=== PATIENT | female | born 1985 | race Caucasian/White ===

== ENCOUNTER → 2016-11-05 | Outpatient (CLI) | payer MEDICAID | LOC: FIMAGING 09:22 | PROVIDERS: ATTEND Nurse Practitioner Women's Health | DX: Z12.39 Encounter for other screening for malignant neoplasm of breast (principal); N63 Unspecified lump in breast; Z86.018 Personal history of other benign neoplasm ==

== ENCOUNTER → 2017-01-05 | Outpatient (CLI) | payer MEDICAID | LOC: FIMAGING 09:15 | PROVIDERS: ATTEND Family Medicine | DX: R74.8 Abnormal levels of other serum enzymes (principal) ==

== ENCOUNTER 2017-12-14 14:03 | Emergency (ER) | payer MEDICAID ==
--- NOTE | 2017-12-14 14:33 | EDPHY ---
H & P Time Seen by Provider: 12/14/17 14:30 HPI/ROS: Chief complaint. Abdominal pain HPI. Patient is a 32-year-old female presents emergency department with abdominal pain that began at 10:00 a.m. This morning. She has a history of dysmenorrhea. She just began her menstrual period. She describes low abdominal cramping that radiates to her back. It is associated with vomiting and diarrhea. No urinary symptoms. No fever. She has had similar symptoms previously. She also notes some shortness of breath that began with the vomiting. She does not have her inhaler with her ROS Constitutional. no fever/chills, no weakness Eyes. no problems with vision ENT. no sore throat, no nasal drainage Cardiovascular. no chest pain Respiratory. no shortness of breath, no cough Abdominal. Abdominal pain and vaginal bleeding with vomiting and diarrhea . no problems urinating MS. no calf pain/swelling, no neck/back pain, no joint pain Skin. no rash Lymph. no swollen glands Neuro. no headache, no dizziness, no difficulty walking or with speech Past Medical/Surgical History: Past medical history significant ovarian cyst and asthma Social History: , nonsmoker, no alcohol Smoking Status: Never smoked Physical Exam: General Appearance: Alert pleasant well-developed female mild distress vitals are stable Eyes: Pupils equal and round no pallor or injection. ENT, Mouth: Mucous membranes are moist. Respiratory: No retractions. Mild inspiratory expiratory wheezing Cardiovascular: Regular rate and rhythm. Gastrointestinal: Abdomen is soft with suprapubic tenderness. No masses. Normal bowel sounds Neurological: Awake and alert, sensory and motor exams grossly normal. Skin: Warm and dry, no rashes. Musculoskeletal: Neck is supple nontender. Extremities symmetrical, full range of motion. Psychiatric: Patient is oriented X 3, there is no agitation. Constitutional: Initial Vital Signs Temperature (C) 36.6 C 12/14/17 14:08 Heart Rate 73 12/14/17 14:08 Respiratory Rate 18 12/14/17 14:08 Blood Pressure 127/82 H 12/14/17 14:08 O2 Sat (%) 97 12/14/17 14:08 O2 Delivery Mode Room Air Allergies/Adverse Reactions: Penicillins Allergy (Verified 12/14/17 14:07) Home Medications: Medication Instructions Recorded Promethazine HCl [Phenergan] 25 mg PO Q6 #10 tab 10/23/14 oxyCODONE/APAP 5/325 [Percocet 1 tab PO Q6 #10 tab 10/23/14 5/325] Cephalexin [Keflex (*)] 500 mg PO TID #15 cap 12/14/17 Medical Decision Making - Diagnostics Imaging Results: Imaging Impressions Pelvic/Renal Ultrasound 12/14/17 14:54 Impression: 1. Right ovarian simple cyst measuring 2.9 x 2.5 x 2.4 cm. 2. No ovarian torsion or significant free fluid. 3. No uterine leiomyomata. Findings and recommendations discussed with Emergency Department physician, Wil Corbett at 1558 hour, 12/14/2017. Final report concurs with initial preliminary interpretation. Ultrasound of the pelvis reveals a 2.5 cm ovarian cyst. No evidence for torsion ED Course/Re-evaluation: Re-evaluation at about 3:40 p.m. Patient is stable and feeling better. No abdominal pain now. Re-evaluation 4:10 p.m.. Patient and her and I discussed imaging and lab results. We discussed treatment plan including criteria for return importance of follow-up and further evaluation. They expressed understanding and agreement Differential Diagnosis: I considered urinary tract infection, ectopic , ovarian cyst, dysmenorrhea - Data Points Laboratory Results: Laboratory Results 12/14/17 14:30 12/14/17 14:30 12/14/17 12/14/17 12/14/17 15:20 14:30 14:30 WBC RBC Hgb Hct MCV MCH MCHC RDW Plt Count MPV Neut % (Auto) Lymph % (Auto) [place] % (Auto) Eos % (Auto) Baso % (Auto) Nucleat RBC Rel Count Absolute Neuts (auto) Absolute Lymphs (auto) Absolute Monos (auto) Absolute Eos (auto) Absolute Basos (auto) Absolute Nucleated RBC Immature Gran % Immature Gran # Sodium 142 mEq/L mEq/L (135-145) Potassium 4.0 mEq/L mEq/L (3.5-5.2) Chloride 105 mEq/L mEq/L (97-110) Carbon Dioxide 23 mEq/l mEq/l (22-31) Anion Gap 14 mEq/L mEq/L (8-16) BUN 11 mg/dL mg/dL (7-23) Creatinine 0.7 mg/dL mg/dL (0.6-1.0) Estimated GFR > 60 Glucose 101 mg/dL H mg/dL (70-100) Calcium 9.6 mg/dL mg/dL (8.5-10.4) Beta HCG, Qual NEGATIVE Urine Color YELLOW Urine Appearance HAZY Urine pH 9.0 H (5.0-7.5) Ur Specific Turner 1.010 (1.002-1.030) Urine Protein 2+ H (NEGATIVE) Urine Ketones 1+ H (NEGATIVE) Urine Blood 3+ H (NEGATIVE) Urine Nitrate NEGATIVE (NEGATIVE) Urine Bilirubin NEGATIVE (NEGATIVE) Urine Urobilinogen NEGATIVE EU EU (0.2-1.0) Ur Leukocyte Esterase TRACE H (NEGATIVE) Urine RBC 50-182 /hpf H /hpf (0-3) Urine WBC 25-50 /hpf H /hpf (0-3) Ur Epithelial Cells 1+ /lpf /lpf (NONE-1+) Urine Bacteria 1+ /hpf H /hpf (NONE SEEN) Urine Glucose NEGATIVE (NEGATIVE) 12/14/17 14:30 WBC 10.78 10^3/uL H 10^3/uL (3.80-9.50) RBC 4.64 10^6/uL 10^6/uL (4.18-5.33) Hgb 14.2 g/dL g/dL (12.6-16.3) Hct 41.6 % % (38.0-47.0) MCV 89.7 fL fL (81.5-99.8) MCH 30.6 pg pg (27.9-34.1) MCHC 34.1 g/dL g/dL (32.4-36.7) RDW 12.6 % % (11.5-15.2) Plt Count 208 10^3/uL 10^3/uL (150-400) MPV 11.4 fL fL (8.7-11.7) Neut % (Auto) 88.8 % H % (39.3-74.2) Lymph % (Auto) 7.1 % L % (15.0-45.0) Sumter % (Auto) 2.9 % L % (4.5-13.0) Eos % (Auto) 0.4 % L % (0.6-7.6) Baso % (Auto) 0.4 % % (0.3-1.7) Nucleat RBC Rel Count 0.0 % % (0.0-0.2) Absolute Neuts (auto) 9.58 10^3/uL H 10^3/uL (1.70-6.50) Absolute Lymphs (auto) 0.77 10^3/uL L 10^3/uL (1.00-3.00) Absolute Monos (auto) 0.31 10^3/uL 10^3/uL (0.30-0.80) Absolute Eos (auto) 0.04 10^3/uL 10^3/uL (0.03-0.40) Absolute Basos (auto) 0.04 10^3/uL 10^3/uL (0.02-0.10) Absolute Nucleated RBC 0.00 10^3/uL 10^3/uL (0-0.01) Immature Gran % 0.4 % % (0.0-1.1) Immature Gran # 0.04 10^3/uL 10^3/uL (0.00-0.10) Sodium Potassium Chloride Carbon Dioxide Anion Gap BUN Creatinine Estimated GFR Glucose Calcium Beta HCG, Qual Urine Color Urine Appearance Urine pH Ur Specific Turner Urine Protein Urine Ketones Urine Blood Urine Nitrate Urine Bilirubin Urine Urobilinogen Ur Leukocyte Esterase Urine RBC Urine WBC Ur Epithelial Cells Urine Bacteria Urine Glucose Medications Given: Discontinued Medications Albuterol/Ipratropium (Duoneb) 3 ml IH EDNOW ONE Stop: 12/14/17 14:55 Last Admin: 12/14/17 15:02 Dose: 3 ml Sodium Chloride (Ns) 1,000 mls @ 0 mls/hr IV EDNOW ONE; Wide Open PRN Reason: Protocol Stop: 12/14/17 14:55 Last Admin: 12/14/17 15:02 Dose: 1,000 mls Sodium Chloride (Ns) 1,000 mls @ 0 mls/hr IV EDNOW ONE; Wide Open PRN Reason: Protocol Stop: 12/14/17 14:55 Last Admin: 12/14/17 15:02 Dose: 1,000 mls Ketorolac Tromethamine (Toradol) 30 mg IVP EDNOW ONE Stop: 12/14/17 14:55 Last Admin: 12/14/17 15:02 Dose: 30 mg Ondansetron HCl (Zofran) 4 mg IVP EDNOW ONE Stop: 12/14/17 14:55 Last Admin: 12/14/17 15:03 Dose: 4 mg Departure - Departure Disposition: Home, Routine, Self-Care Clinical Impression: Ovarian cyst Qualifiers: Laterality: right Qualified Code(s): N83.201 - Unspecified ovarian cyst, right side Urinary tract infection Qualifiers: Urinary tract infection type: site unspecified Hematuria presence: with hematuria Qualified Code(s): N39.0 - Urinary tract infection, site not specified ; R31.9 - Hematuria, unspecified; R31.9 - Hematuria, unspecified Condition: Good Instructions: Ovarian Cyst (ED), Urinary Tract Infection in Women (ED) Additional Instructions: Drink plenty of fluids and stay hydrated. Ibuprofen 600 mg every 6 hr for discomfort. Cephalexin as antibiotic. Return for worsening symptoms. Recheck in 2 days if not improved Referrals: Martha Hull, PAC [Primary Care Provider] - 2-3 days, if not improved Prescriptions: Cephalexin [Keflex (*)] 500 mg PO TID #15 cap
[2017-12-14] MEDS ORDERED: KETOROLAC 30 MG/1 ML SDV IVP ONE (14:54)
[2017-12-14] MEDS ORDERED: IPRATROPIUM/ALBUTEROL 3 ML DEYVIAL IH ONE (14:54)
[2017-12-14] MEDS ORDERED: ONDANSETRON 4 MG/2 ML VIAL IVP ONE (14:54)
[2017-12-14] MEDS ORDERED: NS 1,000 ML IV ONE ×2 (14:54)
[2017-12-14 15:04] LABS: PLATELET COUNT 208 10^3/uL (150-400)
[2017-12-14 16:34] VITALS: BP 96/68
== END 2017-12-14 16:40 | disposition home or self-care (01) ==
DX: N83.201 Unspecified ovarian cyst, right side (principal); N39.0 Urinary tract infection, site not specified; B96.89 Other specified bacterial agents as the cause of diseases classified elsewhere; E86.9 Volume depletion, unspecified
CPT/HCPCS: 96374; J1885; J2405

== ENCOUNTER 2018-05-30 09:31 | Day surgery (SDC) | payer MEDICAID ==
--- NOTE | 2018-05-30 00:32 | PDGENHP ---
History and Physical - Chief Complaint LEFT HIP PAIN - History of Present Illness Diagnosis: 1. Bilateral Femoroacetabular impingement (CAROL) Cam type 2. Bilateral Hip Dyplasia 3. Bilateral femoral/tibial malrotation (Left side symptomatic >>> Right) HISTORY OF PRESENT ILLNESS: Raúlis a 33 y.o.~~~active female~who I have had the pleasure to consult on today. I have enjoyed meeting her. She~lives in [place], [place]. 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 ~She~is ; she~has no children. ~Raúlenjoys unicycling, juggling, hiking, rock climbing. Wiliams bilateral hip pain started several years ago, with some~recalled trauma or injury, and with some~previous complaints. Back in 2009- doing some hard stretching and felt a sensation of it slipping out of place - but this was nonpainful. Then 2 years ago started having lower back pain followed by hip pain in the past 6 months. Hips started bothering her when she began PT for her lower back. Raúldoes not have~a known history of hip dysplasia (h/o dysplasia in sister and father). Presentation today is of anterior bilateral hip pain (left >>~right). ~The hip does~wake her~at night and does~click and catch on her. Sitting can be a real struggle for her. Raúldoes~report suffering from lower back pain episodes. Raúlhas not~participated in physical therapy (for the hip specifically) and has not~tried other conservative measures. Raúlhas not~utilized medication for pain management. Raúlunderstands that she~has a hip and pelvis problem which should be researched and wishes to get a better understanding of her~hip status, followed by an establishment of a treatment strategy, hoping she~would be able to get back to her~well being active life. History: Past medical history: ~ Patient ~has a past medical history of Asthma. Relevant familial history: hip dysplasia sister and father Past surgical history: None Raúlhas never received general anesthesia. I have reviewed, verified and agree with the past medical, surgical, family and social history. Current Medications:~has a current medication list which includes the following prescription(s): ibuprofen. ALLERGIES:~is allergic to penicillins. Objective: Physical Examination: Raúlis 5 feet 9 inches tall and weighs 140 Lbs. Raúlis AAO x3; she~is well-nourished, in NAD. Skin is warm and dry. ~Breathing is non-labored. ~CV with RRR by pulse. Abdomen is soft, NTND. Currently, she~walks with a normal~gait. Trendelenburg sign is positive and proprioception is reduced, both~sides. She~presents with no~signs of joint laxity. Beightons Score: 0 She~is fit looking. ~~ Lower spine examination is negative for sciatic or femoral nerve irritation with negative SLR &~femoral stretch tests. Range of motion of the spine is normal~for flexion, extension, and rotations, with no associated pain. Strength, Sensation and pulses are normal - bilaterally Ankles and knees exams are normal~and no~mal-alignment is evident. She~has right~0.5 cm short leg length discrepancy. Thigh circumference is symmetric with no evidence for muscle atrophy on both~ sides. Hip ROM (degrees): FL ER At 90~hip FL IR At 90~hip FL AB AD EX IR Neutral hip ER Neutral hip R 110 55 20 35 10 5 45 40 L 120 50 35 35 10 5 45 40 Specific hip and pelvis tests: Impingement Test [place] Roll Add. Longus R Negative +++ Negative Negative L +++ +++ Negative + Glut. Med ITB Posterior Imp R Negative 5/5 strength Negative 5/5 strength Negative L Negative 5/5 strength Negative 5/5 strength Negative Squeeze test measured normal Bony Symphysis pubis is painful to touch while concentric activity of the rectus abdominis, does not~produce pain at its insertion. Ilio Psos specific tests are negative for pain during cycling for both hips~and remarkable for non painful snap~~On eleft HF has no pain both hips. lateral capsule tenderness on the left Greater trochanteric burse is painful on the left hip. Piriformis tests: FAIR is negative, with no local signs of neuritis related to sciatic nerve. SIJs examination is painful bilaterally with normal~[place] in relation and local tenderness. Hamstrings tests are negative both hips. Tibial torsion - 55 bilaterally ER On a daily basis, the following percentages reflect Liane's overall total pain : Deep anterior hip: 50% SI joint: 50% Imaging: Radiology studies which I have personally reviewed, analyzed and measured are below: XR: AP of the hip and pelvis: Performed in a suboptimal technique Coccyx to pubic symphysis distance 2.2 cm. 0 degrees caudal [place] Lines are preserved. Marked Pathological signs are seen in the Symphysis Pubis. No Pathological signs are seen at the Ischial tuberosity. ~ Specific measurements show: NSA~ LCE Sourcil~Angle Sharp's angle Lat. Cam Lat. Pincer C.Over~sign Head~Coverage % ATDmm R 128 16 9 41 N N N 65 + L 125 19 11 40 N N N 73 + Pos. wall sign ISS NAD ~~Dysplasia Comments R + Negative 18.6 mm +++ L + Negative 14.4 mm ++ Sclerosis Sup. Lat. OA Cysts Joint Space-WBZ Joint Space-Medial R Negative Negative Negative 4.6 mm 4.5 mm L Negative Negative Negative 4.5 mm 5.1 mm X Table lateral: Anterior cam lesion is seen~on both hips. Alpha Angle: ~ Right 74 dergrees Left 76 degrees Impression and plan: Raúlis a 33 y.o.~active female~suffering from symptomatic Left hip pain due to Left Hip Dyplasia, Left Femoroacetabular impingement (CAROL) Cam type, and Left (clinical) femoral and tibial malrotation causing significant disability to her~and altering her~sport and life activities. Physical examination, imaging, and her~story correspond with the diagnosis mentioned above. I explained that hip dysplasia is a condition wherein the hip joint has excessive play~and instability due to a variety of factors, including the depth and adequacy of the socket, the orientation of the femur bone, and ligament laxity around the hip joint. Dysplasia ranges in severity from borderline to yeni, with treatment options being specific to the specific nature of the problem. Left untreated, the instability in the hip joint can cause progressive tearing of the labrum and deterioration of the surface cartilage, ultimately resulting in progressive osteoarthritis of the hip. I explained that femoroacetabular impingement (CAROL - Cam type) arises due to a bony or soft tissue conflict between the femur (ball) and acetabulum (socket) caused by an abnormality in the shape of the femoral head and neck. Over time, repetitive impingement can result in damage to the labrum and adjacent surface cartilage within the socket, ultimately giving rise to progressive osteoarthritis of the hip. I explained that although a labral tear can be a source of pain, it is rarely the root of the problem and typically occurs secondary to an underlying abnormality in the shape and mechanics of the hip joint. I reviewed conservative treatment options for Dysplasia and CAROL including activity modification to avoid positions of impingement or instability, physical therapy, non-steroidal anti-inflammatory medications, and various injections (corticosteroid and PRP) aimed at reducing inflammation in the hip joint or/and preventing dynamic instability and impingement. PRP injections may promote healing and reduce symptoms in certain cases but it will not repair chronically damaged tissue. Although these measures may help to buy time~and reduce current level of symptoms, they are not a definitive solution to the problem given the underlying abnormality in the shape of the hip joint. Patients who have failed conservative management and continue to experience symptoms are candidates for definitive surgical treatment, which may consist of hip arthroscopy alone or in combination with more invasive bony realignment procedures of the hip socket and/or femur called periacetabular osteotomy (MARSHA) or derotational femoral osteotomy (DFO). Hip arthroscopy typically includes treating the labrum with either repair or reconstruction of the torn labrum; as well as addressing the underlying abnormalities by restoring the normal shape to the hip joint. If the cartilage is damaged a Microfracture surgical procedure may also be necessary to help stimulate the growth of fibrocartilage. If a patient requires a labral reconstruction or a Microfracture, the initial rehabilitation from the surgery may take longer, but the fpc results are typically favorable. Raúlwill review the info presented. In order to obtain more detailed information regarding the alignment, orientation, and shape of the bony hip and pelvis I will order a CT scan to be performed. The results of the CT scan, including femoral torsion and acetabular version measured values and 3D images, will aid me in deciding on the best treatment strategy and surgical pre-planning. (Given clinical signs of excessive external tibial torsion will get CT that includes proximal and distal tibia). Liane is going to think about her options and get back to us. Raúlis happy with this plan. I have also supplied her~with handouts, outlining the expected surgical treatment and rehab involved. I wish~Liane~all the best, ~~ Sherie Guthrie MD History Information - Allergies/Home Medication List Allergies/Adverse Reactions: Penicillins Allergy (Verified 05/02/18 11:41) RASH,HIVES HANDS & ARMS Home Medications: Ibuprofen [Motrin (*)] 400 mg PO Q8 PRN 05/06/18 [Last Taken Unknown] Imiquimod 1 each TP MOWEFR@21 05/06/18 [Last Taken Unknown] Levalbuterol Inhaler [Xopenex Hfa Inhaler (*)] 2 puffs IH DAILY PRN 05/06/18 [ Last Taken Unknown] Ondansetron Odt [Zofran Odt 4 mg (*)] 4 mg PO Q4 PRN 05/06/18 [Last Taken Unknown] I have personally reviewed and updated: medical history - Social History Smoking Status: Never smoked Review of Systems Review of Systems: Physical Exam Physical Exam:
[2018-05-30] MEDS ORDERED: ACETAMINOPHEN 500 MG TAB PO ONE (10:12)
[2018-05-30] MEDS ORDERED: CLINDAMYCIN 900 MG/DEXTROSE 50 ML IV ONE (10:12)
[2018-05-30] MEDS ORDERED: PREGABALIN 150 MG CAP PO ONE (10:12)
[2018-05-30] MEDS ORDERED: LR 1,000 ML IV ONE (10:13)
[2018-05-30] MEDS ORDERED: LIDOCAINE 1% 2 ML INJ ID PRN (10:13)
[2018-05-30] MEDS ORDERED: MIDAZOLAM 2 MG/2 ML VIAL IVP ONE (10:15)
--- NOTE | 2018-05-30 10:15 | PDANEPAE ---
ANE History of Present Illness here for hip scope ANE Past Medical History - Cardiovascular History Hx Hypertension: No Hx Arrhythmias: No Hx Chest Pain: No Hx Coronary Artery / Peripheral Vascular Disease: No Hx CHF / Valvular Disease: No Hx Palpitations: No Cardiovascular History Comment: POSS SL MURMUR TEEN - Pulmonary History Hx COPD: No Hx Asthma/Reactive Airway Disease: No Hx Recent Upper Respiratory Infection: No Hx Oxygen in Use at Home: No Hx Sleep Apnea: No Sleep Apnea Screening Result - Last Documented: Negative Pulmonary History Comment: VOCAL CORD DISORDER,SOMETIMES AFTER BIG MEAL. 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 INFREQUENT USE OF INHALER - Neurologic History Hx Cerebrovascular Accident: No Hx Seizures: No Hx Dementia: No - Endocrine History Hx Diabetes: No - Renal History Hx Renal Disorders: Yes Renal History Comment: HX OF UTI'S - Liver History Hx Hepatic Disorders: No - Neurological & Psychiatric Hx Hx Neurological and Psychiatric Disorders: No - Cancer History Hx Cancer: No - Congenital Disorder History Hx Congenital Disorders: Yes Congenital History Comment: CLAY HIPS - GI History Hx Gastrointestinal Disorders: Yes Gastrointestinal History Comment: PRONE TO NAUSEA AT THE SLIGHTEST PROVACATION CAN HAPPEN DURING MENSES - Other Health History Other Health History: INTERMITTENT RASH - Chronic Pain History Chronic Pain: Yes (CLAY HIPS) - Surgical History Prior Surgeries: LT HIP SCOPE FEMOROPLASTY 05/30/18 ANE Review of Systems Review of Systems: - Exercise capacity METS (RN): 6 METS ANE Patient History - Allergies Allergies/Adverse Reactions: Penicillins Allergy (Verified 05/02/18 11:41) RASH,HIVES HANDS & ARMS - Home Medications Home medications: home medication list seen and reviewed Home Medications: Ibuprofen [Motrin (*)] 400 mg PO Q8 PRN 05/06/18 [Last Taken Unknown] Imiquimod 1 each TP MOWEFR@21 05/06/18 [Last Taken Unknown] Levalbuterol Inhaler [Xopenex Hfa Inhaler (*)] 2 puffs IH DAILY PRN 05/06/18 [ Last Taken Unknown] Ondansetron Odt [Zofran Odt 4 mg (*)] 4 mg PO Q4 PRN 05/06/18 [Last Taken Unknown] - NPO status NPO Status: no food or drink >8 hours - Anes Hx Anes Hx: no prior problems - Smoking Hx Smoking Status: Never smoked - Alcohol Use Alcohol Use: Rarely - Family Anes Hx Family Anes Hx: none Family Hx Anesthesia Complications: NEG ANE Labs/Vital Signs - Vital Signs Vital Signs: reviewed preoperatively; see RN documention for details Height: 177.8 cm Weight: 63.503 kg ANE Physical Exam - Airway Neck exam: FROM Mallampati Score: Class 2 Mouth exam: normal dental/mouth exam - Pulmonary Pulmonary: no respiratory distress, clear to auscultation - Cardiovascular Cardiovascular: regular rate and rhythym, no murmur, rub, or gallop - ASA Status ASA Status: II ANE Anesthesia Plan Anesthesia Plan: general endotracheal anesthesia
[2018-05-30] MEDS ORDERED: BUPIVACAINE/EPI 0.5% 30 ML SDV ONE (10:26)
[2018-05-30] MEDS ORDERED: EPINEPHrine 30 MG/30 ML MDV (0.1 MG/0.1 ML) ONE (10:27)
[2018-05-30] MEDS ORDERED: fentaNYL 100 MCG/2 ML INJ ONE ×3 (10:31→12:52)
[2018-05-30] MEDS ORDERED: PROPOFOL 200 MG/20 ML VIAL ONE ×3 (10:31→12:50)
[2018-05-30] MEDS ORDERED: LIDOCAINE 2% 100 MG/5 ML SYR ONE (10:33)
[2018-05-30] MEDS ORDERED: ROCURONIUM 100 MG/10 ML VIAL ONE (10:33)
[2018-05-30] MEDS ORDERED: ONDANSETRON 4 MG/2 ML VIAL ONE (11:41)
[2018-05-30] MEDS ORDERED: DEXAMETHASONE 4 MG/ML VIAL ONE (11:41)
[2018-05-30] MEDS ORDERED: HYDROmorphONE/DILAUDID 2 MG/ML INJ IVP PRN (15:14)
[2018-05-30] MEDS ORDERED: ONDANSETRON 4 MG/2 ML VIAL IVP PRN (15:14)
[2018-05-30] MEDS ORDERED: HYDROCODONE/APAP 5/325 TAB PO PRN (15:14)
[2018-05-30] MEDS ORDERED: PROMETHAZINE HCL 25 MG/ML INJ IVP PRN (15:14)
[2018-05-30] MEDS ORDERED: NALOXONE HCL 0.4 MG/ML INJ IVP PRN (15:14)
[2018-05-30] MEDS ORDERED: oxyCODONE IR 5 MG TAB PO PRN (15:14)
[2018-05-30] MEDS ORDERED: DIAZEPAM 5 MG/ML 1 ML SYR IVP PRN (15:14)
[2018-05-30] MEDS ORDERED: fentaNYL 100 MCG/2 ML INJ IVP PRN (15:14)
[2018-05-30] MEDS ORDERED: ACETAMINOPHEN 500 MG TAB PO PRN (15:14)
--- NOTE | 2018-05-30 15:16 | POSTANESTH ---
Post Anesthetic Evaluation Cardiovascular Status: Normal, Stable, Similar to Pre-Op Cond Respiratory Status: Normal, Stable, Similar to Pre-op Cond. Level of Consciousness/Mental Status: Can Participate in Eval, Alert and Oriented Pain Control: Adequate, Prn Tx Ordered Nausea/Vomiting Control: Adequate, Prn Tx Ordered Complications Possibly Related to Anesthesia: None Noted
--- NOTE | 2018-05-30 15:31 | POSTOPPROG ---
Post Op Note Date of Operation: 05/30/18 Surgeon: Sam Jeffers Timber Management Technician: Dr. Tenorio Anesthesia: GET(General Endotracheal) Pre-op Diagnosis: Left CAROL Post-op Diagnosis: Same Procedure: Left Hip Arthroscopy Inf/Abcess present in the surg proc area at time of surgery?: No
[2018-05-30 17:30] VITALS: BP 109/70
[2018-05-30] MEDS ORDERED: oxyCODONE IR 5 MG TAB ONE (17:39)
== END 2018-05-30 18:08 | disposition home or self-care (01) ==
LOC: FSGY 09:31
PROVIDERS: ATTEND Orthopaedic Surgery Sports Medicine
PROC: 0SQB4ZZ Repair Left Hip Joint, Percutaneous Endoscopic Approach (ICD-10-PCS; principal; 2018-05-30 11:00)
PROC: BQ111ZZ Fluoroscopy of Left Hip using Low Osmolar Contrast (ICD-10-PCS; principal; 2018-05-30 11:00)
PROC: 0SBB4ZZ Excision of Left Hip Joint, Percutaneous Endoscopic Approach (ICD-10-PCS; principal; 2018-05-30 11:00)
DX: M25.852 Other specified joint disorders, left hip (principal); Q65.89 Other specified congenital deformities of hip; Z87.440 Personal history of urinary (tract) infections; Z88.0 Allergy status to penicillin
CPT/HCPCS: C1713; J0171; J1100; J2001; J2250; J2405; J2704; J3010

== ENCOUNTER 2018-06-06 05:08 | Inpatient (IN) | payer MEDICAID ==
--- NOTE | 2018-06-05 20:10 | PDGENHP ---
History and Physical - Chief Complaint LEFT HIP PAIN - History of Present Illness Diagnosis: 1. Bilateral Femoroacetabular impingement (CAROL) Cam type 2. Bilateral Hip Dyplasia 3. Bilateral femoral/tibial malrotation (Left side symptomatic >>> Right) HISTORY OF PRESENT ILLNESS: Raúlis a 33 y.o.~~~active female~who I have had the pleasure to consult on today. I have enjoyed meeting her. She~lives in [place], [place]. 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 ~She~is ; she~has no children. ~Raúlenjoys unicycling, juggling, hiking, rock climbing. Wiliams bilateral hip pain started several years ago, with some~recalled trauma or injury, and with some~previous complaints. Back in 2009- doing some hard stretching and felt a sensation of it slipping out of place - but this was nonpainful. Then 2 years ago started having lower back pain followed by hip pain in the past 6 months. Hips started bothering her when she began PT for her lower back. Raúldoes not have~a known history of hip dysplasia (h/o dysplasia in sister and father). Presentation today is of anterior bilateral hip pain (left >>~right). ~The hip does~wake her~at night and does~click and catch on her. Sitting can be a real struggle for her. Raúldoes~report suffering from lower back pain episodes. Raúlhas not~participated in physical therapy (for the hip specifically) and has not~tried other conservative measures. Raúlhas not~utilized medication for pain management. Raúlunderstands that she~has a hip and pelvis problem which should be researched and wishes to get a better understanding of her~hip status, followed by an establishment of a treatment strategy, hoping she~would be able to get back to her~well being active life. History: Past medical history: ~ Patient ~has a past medical history of Asthma. Relevant familial history: hip dysplasia sister and father Past surgical history: None Raúlhas never received general anesthesia. I have reviewed, verified and agree with the past medical, surgical, family and social history. Current Medications:~has a current medication list which includes the following prescription(s): ibuprofen. ALLERGIES:~is allergic to penicillins. Objective: Physical Examination: Raúlis 5 feet 9 inches tall and weighs 140 Lbs. Raúlis AAO x3; she~is well-nourished, in NAD. Skin is warm and dry. ~Breathing is non-labored. ~CV with RRR by pulse. Abdomen is soft, NTND. Currently, she~walks with a normal~gait. Trendelenburg sign is positive and proprioception is reduced, both~sides. She~presents with no~signs of joint laxity. Beightons Score: 0 She~is fit looking. ~~ Lower spine examination is negative for sciatic or femoral nerve irritation with negative SLR &~femoral stretch tests. Range of motion of the spine is normal~for flexion, extension, and rotations, with no associated pain. Strength, Sensation and pulses are normal - bilaterally Ankles and knees exams are normal~and no~mal-alignment is evident. She~has right~0.5 cm short leg length discrepancy. Thigh circumference is symmetric with no evidence for muscle atrophy on both~ sides. Hip ROM (degrees): FL ER At 90~hip FL IR At 90~hip FL AB AD EX IR Neutral hip ER Neutral hip R 110 55 20 35 10 5 45 40 L 120 50 35 35 10 5 45 40 Specific hip and pelvis tests: Impingement Test [place] Roll Add. Longus R Negative +++ Negative Negative L +++ +++ Negative + Glut. Med ITB Posterior Imp R Negative 5/5 strength Negative 5/5 strength Negative L Negative 5/5 strength Negative 5/5 strength Negative Squeeze test measured normal Bony Symphysis pubis is painful to touch while concentric activity of the rectus abdominis, does not~produce pain at its insertion. Ilio Psos specific tests are negative for pain during cycling for both hips~and remarkable for non painful snap~~On eleft HF has no pain both hips. lateral capsule tenderness on the left Greater trochanteric burse is painful on the left hip. Piriformis tests: FAIR is negative, with no local signs of neuritis related to sciatic nerve. SIJs examination is painful bilaterally with normal~[place] in relation and local tenderness. Hamstrings tests are negative both hips. Tibial torsion - 55 bilaterally ER On a daily basis, the following percentages reflect Liane's overall total pain : Deep anterior hip: 50% SI joint: 50% Imaging: Radiology studies which I have personally reviewed, analyzed and measured are below: XR: AP of the hip and pelvis: Performed in a suboptimal technique Coccyx to pubic symphysis distance 2.2 cm. 0 degrees caudal [place] Lines are preserved. Marked Pathological signs are seen in the Symphysis Pubis. No Pathological signs are seen at the Ischial tuberosity. ~ Specific measurements show: NSA~ LCE Sourcil~Angle Sharp's angle Lat. Cam Lat. Pincer C.Over~sign Head~Coverage % ATDmm R 128 16 9 41 N N N 65 + L 125 19 11 40 N N N 73 + Pos. wall sign ISS NAD ~~Dysplasia Comments R + Negative 18.6 mm +++ L + Negative 14.4 mm ++ Sclerosis Sup. Lat. OA Cysts Joint Space-WBZ Joint Space-Medial R Negative Negative Negative 4.6 mm 4.5 mm L Negative Negative Negative 4.5 mm 5.1 mm X Table lateral: Anterior cam lesion is seen~on both hips. Alpha Angle: ~ Right 74 dergrees Left 76 degrees Impression and plan: Raúlis a 33 y.o.~active female~suffering from symptomatic Left hip pain due to Left Hip Dyplasia, Left Femoroacetabular impingement (CAROL) Cam type, and Left (clinical) femoral and tibial malrotation causing significant disability to her~and altering her~sport and life activities. Physical examination, imaging, and her~story correspond with the diagnosis mentioned above. I explained that hip dysplasia is a condition wherein the hip joint has excessive play~and instability due to a variety of factors, including the depth and adequacy of the socket, the orientation of the femur bone, and ligament laxity around the hip joint. Dysplasia ranges in severity from borderline to yeni, with treatment options being specific to the specific nature of the problem. Left untreated, the instability in the hip joint can cause progressive tearing of the labrum and deterioration of the surface cartilage, ultimately resulting in progressive osteoarthritis of the hip. I explained that femoroacetabular impingement (CAROL - Cam type) arises due to a bony or soft tissue conflict between the femur (ball) and acetabulum (socket) caused by an abnormality in the shape of the femoral head and neck. Over time, repetitive impingement can result in damage to the labrum and adjacent surface cartilage within the socket, ultimately giving rise to progressive osteoarthritis of the hip. I explained that although a labral tear can be a source of pain, it is rarely the root of the problem and typically occurs secondary to an underlying abnormality in the shape and mechanics of the hip joint. I reviewed conservative treatment options for Dysplasia and CAROL including activity modification to avoid positions of impingement or instability, physical therapy, non-steroidal anti-inflammatory medications, and various injections (corticosteroid and PRP) aimed at reducing inflammation in the hip joint or/and preventing dynamic instability and impingement. PRP injections may promote healing and reduce symptoms in certain cases but it will not repair chronically damaged tissue. Although these measures may help to buy time~and reduce current level of symptoms, they are not a definitive solution to the problem given the underlying abnormality in the shape of the hip joint. Patients who have failed conservative management and continue to experience symptoms are candidates for definitive surgical treatment, which may consist of hip arthroscopy alone or in combination with more invasive bony realignment procedures of the hip socket and/or femur called periacetabular osteotomy (MARSHA) or derotational femoral osteotomy (DFO). Hip arthroscopy typically includes treating the labrum with either repair or reconstruction of the torn labrum; as well as addressing the underlying abnormalities by restoring the normal shape to the hip joint. If the cartilage is damaged a Microfracture surgical procedure may also be necessary to help stimulate the growth of fibrocartilage. If a patient requires a labral reconstruction or a Microfracture, the initial rehabilitation from the surgery may take longer, but the assisted results are typically favorable. Raúlwill review the info presented. In order to obtain more detailed information regarding the alignment, orientation, and shape of the bony hip and pelvis I will order a CT scan to be performed. The results of the CT scan, including femoral torsion and acetabular version measured values and 3D images, will aid me in deciding on the best treatment strategy and surgical pre-planning. (Given clinical signs of excessive external tibial torsion will get CT that includes proximal and distal tibia). Liane is going to think about her options and get back to us. Raúlis happy with this plan. I have also supplied her~with handouts, outlining the expected surgical treatment and rehab involved. I wish~Liane~all the best, ~~ Sherie Guthrie MD History Information - Allergies/Home Medication List Allergies/Adverse Reactions: Penicillins Allergy (Verified 05/02/18 11:41) RASH,HIVES HANDS & ARMS Home Medications: Ibuprofen [Motrin (*)] 400 mg PO Q8 PRN 05/06/18 [Last Taken Unknown] Imiquimod 1 each TP MOWEFR@21 05/06/18 [Last Taken Unknown] Levalbuterol Inhaler [Xopenex Hfa Inhaler (*)] 2 puffs IH DAILY PRN 05/06/18 [ Last Taken Unknown] Ondansetron Odt [Zofran Odt 4 mg (*)] 4 mg PO Q4 PRN 05/06/18 [Last Taken Unknown] I have personally reviewed and updated: medical history - Social History Smoking Status: Never smoked Review of Systems Review of Systems: Physical Exam Physical Exam:
[2018-06-06] MEDS ORDERED: TRANEXAMIC ACID 1,000 MG in NS 100 ML IV ONE (05:50)
[2018-06-06] MEDS ORDERED: ACETAMINOPHEN 500 MG TAB PO ONE (05:50)
[2018-06-06] MEDS ORDERED: SCOPOLAMINE HYDROBROMIDE 1 MG/3 DAYS PATCH TD ONE (05:50)
[2018-06-06] MEDS ORDERED: PREGABALIN 150 MG CAP PO ONE (05:50)
[2018-06-06] MEDS ORDERED: CLINDAMYCIN 900 MG/DEXTROSE 50 ML IV ONE (05:50)
[2018-06-06] MEDS ORDERED: LIDOCAINE 1% 2 ML INJ ID PRN (05:51)
[2018-06-06] MEDS ORDERED: LR 1,000 ML IV ONE (05:51)
--- NOTE | 2018-06-06 06:53 | PDANEPAE ---
ANE History of Present Illness MARSHA ANE Past Medical History - Cardiovascular History Hx Hypertension: No Hx Arrhythmias: No Hx Chest Pain: No Hx Coronary Artery / Peripheral Vascular Disease: No Hx CHF / Valvular Disease: No Hx Palpitations: No Cardiovascular History Comment: POSS SL MURMUR TEEN - Pulmonary History Hx COPD: No Hx Asthma/Reactive Airway Disease: No Hx Recent Upper Respiratory Infection: No Hx Oxygen in Use at Home: No Hx Sleep Apnea: No Sleep Apnea Screening Result - Last Documented: Negative Pulmonary History Comment: VOCAL CORD DISORDER,SOMETIMES AFTER BIG MEAL. 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 INFREQUENT USE OF INHALER - Neurologic History Hx Cerebrovascular Accident: No Hx Seizures: No Hx Dementia: No - Endocrine History Hx Diabetes: No - Renal History Hx Renal Disorders: Yes Renal History Comment: HX OF UTI'S - Liver History Hx Hepatic Disorders: No - Neurological & Psychiatric Hx Hx Neurological and Psychiatric Disorders: No - Cancer History Hx Cancer: No - Congenital Disorder History Hx Congenital Disorders: Yes Congenital History Comment: CLAY HIPS - GI History Hx Gastrointestinal Disorders: Yes Gastrointestinal History Comment: PRONE TO NAUSEA AT THE SLIGHTEST PROVACATION CAN HAPPEN DURING MENSES - Other Health History Other Health History: INTERMITTENT RASH - Chronic Pain History Chronic Pain: Yes (CLAY HIPS) - Surgical History Prior Surgeries: LT HIP SCOPE FEMOROPLASTY 05/30/18 ANE Review of Systems Review of Systems: - Exercise capacity METS (RN): 6 METS ANE Patient History - Allergies Allergies/Adverse Reactions: Penicillins Allergy (Verified 05/02/18 11:41) RASH,HIVES HANDS & ARMS - Home Medications Home Medications: Ibuprofen [Motrin (*)] 400 mg PO Q8 PRN 05/06/18 [Last Taken Unknown] Imiquimod 1 each TP MOWEFR@21 05/06/18 [Last Taken Unknown] Levalbuterol Inhaler [Xopenex Hfa Inhaler (*)] 2 puffs IH DAILY PRN 05/06/18 [ Last Taken Unknown] Ondansetron Odt [Zofran Odt 4 mg (*)] 4 mg PO Q4 PRN 05/06/18 [Last Taken Unknown] - NPO status NPO Since - Liquids (Date): 06/06/18 NPO Since - Liquids (Time): 04:00 NPO Since - Solids (Date): 06/05/18 NPO Since - Solids (Time): 20:00 - Smoking Hx Smoking Status: Never smoked - Family Anes Hx Family Hx Anesthesia Complications: NEG ANE Labs/Vital Signs - Vital Signs Blood Pressure: 94/74 Heart Rate: 74 Respiratory Rate: 16 O2 Sat (%): 98 Height: 177.8 cm Weight: 63.503 kg ANE Physical Exam - Airway Neck exam: FROM Mallampati Score: Class 2 Mouth exam: normal dental/mouth exam - Pulmonary Pulmonary: clear to auscultation - Cardiovascular Cardiovascular: regular rate and rhythym - ASA Status ASA Status: I ANE Anesthesia Plan Anesthesia Plan: general endotracheal anesthesia
[2018-06-06] MEDS ORDERED: oxyCODONE IR 5 MG TAB PO PRN ×2 (07:02→12:51)
[2018-06-06] MEDS ORDERED: NALOXONE HCL 0.4 MG/ML INJ IVP PRN ×3 (07:02→14:30)
[2018-06-06] MEDS ORDERED: fentaNYL 100 MCG/2 ML INJ IVP PRN (07:02)
[2018-06-06] MEDS ORDERED: MIDAZOLAM 2 MG/2 ML VIAL IVP ONE (07:02)
[2018-06-06] MEDS ORDERED: HYDROmorphONE/DILAUDID 2 MG/ML INJ IVP PRN (07:02)
[2018-06-06] MEDS ORDERED: PROMETHAZINE HCL 25 MG/ML INJ IVP PRN ×2 (07:02→12:50)
[2018-06-06] MEDS ORDERED: ALBUTEROL 3 ML DEYVIAL IH PRN (07:02)
[2018-06-06] MEDS ORDERED: DEXAMETHASONE 4 MG/ML VIAL IVP PRN (07:02)
[2018-06-06] MEDS ORDERED: CITRATE DEXTROSE SOLN 500 ML BAG ONE (07:06)
[2018-06-06] MEDS ORDERED: fentaNYL 100 MCG/2 ML INJ ONE (07:09)
[2018-06-06] MEDS ORDERED: PROPOFOL 200 MG/20 ML VIAL ONE (07:09)
[2018-06-06] MEDS ORDERED: ROCURONIUM 50 MG/5 ML VIAL ONE (07:09)
[2018-06-06] MEDS ORDERED: morphINE PF 5 MG/10 ML INJ ONE (07:13)
[2018-06-06] MEDS ORDERED: DEXAMETHASONE 4 MG/ML VIAL ONE ×2 (07:36)
[2018-06-06] MEDS ORDERED: PHENYLEPHRINE HCL 100 MCG/ML SYR ONE ×2 (07:38→10:37)
[2018-06-06] MEDS ORDERED: HYDROmorphONE/DILAUDID 6 MG/30 ML PCA IV PRN (11:54)
[2018-06-06] MEDS ORDERED: METOCLOPRAMIDE 10 MG/2 ML VIAL IVP PRN ×2 (11:54→14:30)
[2018-06-06] MEDS ORDERED: diphenhydrAMINE 25 MG CAP PO PRN (11:54)
[2018-06-06] MEDS ORDERED: RANITIDINE 50 MG/2 ML VIAL ONE (11:55)
[2018-06-06] MEDS ORDERED: BISACODYL 10 MG SUPP PR PRN (12:47)
[2018-06-06] MEDS ORDERED: MAGNESIUM HYDROXIDE 30 ML UDCUP PO PRN (12:47)
[2018-06-06] MEDS ORDERED: LACTULOSE 20 GM/30 ML UDCUP PO PRN (12:47)
[2018-06-06] MEDS ORDERED: PROMETHAZINE HCL 25 MG TAB PO PRN (12:50)
[2018-06-06] MEDS ORDERED: ONDANSETRON 4 MG/2 ML VIAL ONE (12:53)
--- NOTE | 2018-06-06 13:22 | POSTANESTH ---
Post Anesthetic Evaluation Cardiovascular Status: Normal, Stable Respiratory Status: Normal, Stable Level of Consciousness/Mental Status: Can Participate in Eval, Alert and Oriented Pain Control: Adequate, Prn Tx Ordered Nausea/Vomiting Control: Adequate, Prn Tx Ordered Complications Possibly Related to Anesthesia: None Noted
--- NOTE | 2018-06-06 13:28 | PDMN ---
Medical Necessity Medical necessity: CPT 230[address] [facility] Musculoskeletal Surgery or Procedure GRG, 33 y/o s/p L BRUNO LARSON IP only
[2018-06-06] MEDS ORDERED: RN MESSAGE:REGARDING ANALGESIC ORDERING DR MISC SCH (14:30)
[2018-06-06] MEDS: RN MESSAGE:DATE/TIME OF ADMIN MISC SCH (15:00)
[2018-06-06] MEDS: NS 1,000 ML IV SCH (15:03)
--- NOTE | 2018-06-06 17:00 | SUROPNOTE ---
DORINA Operative Report - Surgery Surgery was performed at [facility] on~06/06/18~ Diagnosis:~Left 1. Hip Acetabular Dysplasia ~ Operation: Left~Becky Acetabular Osteotomy (MARSHA) Surgeon: Sam Jeffers MD Certified Appliance Service Technician:~~Karmen Tenorio MD Anesthetic: General +~spinal Procedure: General anesthetic. Antibiotics given. Cell saver in use. Fluoroscopy. Phase 1: Position lateral, diagonal skin incision between ischial tuberosity and greater trochanter as for posterior hip approach. Blunt split of glut max fibers. Identification of fat pad overlying sciatic nerve. Exposure of sciatic nerve under fat pad, gently retracting it away-medially to ischial tuberosity. Exposure of subcotoloid fossa proximal to short rotators. Using osteotomes and under fluoroscopy, osteotomy of subcotoloid fossa to sciatic notch proximal to ischial spine. Closure of lateral cut. Patient is turned supine. Phase 2: Skin incision just distal to ASIS. Using diathermy the iliac spine was exposed and inguinal ligament + Sartorious were retracted medially, taking the LFCN with them, protecting it. Inner ilium was dissected from iliacus muscle bluntly , with a cob and swab. Dissection continued towards lateral superior ramus pubis. Using fluoroscopy an osteotomy of lateral superior ramus, just medial to tear drop, was performed with~curved fish mouth osteotome. Phase 3: Osteotomy lines of the ilium were marked with diathermy as pre planned according to XR/CT and expected correction of acatabulum. 2 Shanz screws were drilled into central acetabular fragment, corresponding with planned correction angles, in order to mobilize central acetabular fragment after osteotomy is complete. ~Iliac osteotomy was performed with reciprocating saw and the main acetabular fragment was moved to realign weight bearing position. After confirmation of correction using fluoroscopy in AP and false profile planes, the fragment was fixed with 3 -~5.5mm~~full threaded~screws~. Inguinal ligament and Sartorious were attached back to ASIS through drill holes. Incision was closed according to soft tissue layers. Skin was closed with~subdermal Monocryl. Final fluoro shots were obtained to confirm position/correction. After surgery~Liane~moved both lower limbs and had no NV motor compromise. Specimen - none Bleeding -~550ml Complication - none Evaluation under anesthesia: IR at 90 degrees hip flexion prior to MARSHA was~20~degrees and after MARSHA was 10~ degrees. Bleeding:~550~cc into cell-saver, 270~of blood products were returned to patient. Post op instructions: 1.~toe touch~weight bearing crutches for 3~weeks 2. Epidural analgesia for 24-48 hours 3. Continuous SCD 4. Aspirin 81 mg X1 day once Epidural is discontinued 5. Avoid hip flexion past 90 and hip External rotation. 6. PT according to my recommendations at follow up visit Kind regards, Dr. Sam Jeffers .
[2018-06-06] MEDS: NAPROXEN SODIUM 220 MG TAB PO SCH ×2 (18:14→22:55)
[2018-06-06] MEDS ORDERED: LEVALBUTEROL INHALER 200 PUFFS/15 GM MDI IH PRN (21:14)
--- NOTE | 2018-06-06 21:22 | PDHOSCONS ---
History and Physical - Chief Complaint hip pain - History of Present Illness Patient is a 33 yo female without significant PMH presenting with left hip pain and found to have left hip acetabular dysplasia now s/p MARSHA surgery. Patient evaluated by myself in the post operative period. She notes that she has had no issues since the surgery, she has no pain and no nausea. She has eaten already and is hungry again. She does not concerns that she is due for her period and she has a history of having very severe menstrual pain to the extent where she has needed to be seen in the ER frequently and has even had loss of consciousness in the past. History Information - Allergies/Home Medication List Allergies/Adverse Reactions: Penicillins Allergy (Verified 05/02/18 11:41) RASH,HIVES HANDS & ARMS Home Medications: Ibuprofen [Motrin (*)] 400 mg PO Q8 PRN 05/06/18 [Last Taken Unknown] Imiquimod 1 each TP MOWEFR@21 05/06/18 [Last Taken Unknown] Levalbuterol Inhaler [Xopenex Hfa Inhaler (*)] 2 puffs IH DAILY PRN 05/06/18 [ Last Taken Unknown] Ondansetron Odt [Zofran Odt 4 mg (*)] 4 mg PO Q4 PRN 05/06/18 [Last Taken Unknown] Diazepam [Valium 2 MG (*)] 2 mg PO Q6HRS PRN 06/06/18 [Last Taken Unknown] Naproxen 500 mg PO BID 06/06/18 [Last Taken Unknown] oxyCODONE/APAP 5/325 [Percocet 5/325 (*)] 1 - 2 tab PO Q4-6PRN PRN 06/06/18 [ Last Taken Unknown] I have personally reviewed and updated: family history, medical history, social history, surgical history - Past Medical History Additional medical history: dysmenorrhea. 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 Review of Systems Review of Systems: ROS: 10pt was reviewed & negative except for what was stated in HPI & below Physical Exam Physical Exam: Temp Pulse Resp BP Pulse Ox 36.3 C 70 18 84/50 L 93 06/06/18 19:37 06/06/18 19:37 06/06/18 19:37 06/06/18 19:37 06/06/18 19:37 O2 (L/minute) 8 Constitutional: no apparent distress, appears nourished Eyes: PERRL Ears, Nose, Mouth, Throat: moist mucous membranes, hearing normal Cardiovascular: regular rate and rhythym, no murmur, rub, or gallop, No edema Respiratory: no respiratory distress, no rales or rhonchi Gastrointestinal: normoactive bowel sounds, soft, non-tender abdomen Genitourinary: no bladder tenderness Skin: warm, normal color Musculoskeletal: no muscle tenderness Neurologic: AAOx3 Psychiatric: interacting appropriately, not anxious, not encephalopathic Lab Data & Imaging Review 06/06/18 06:50 WBC 6.40 10^3/uL (3.80-9.50) 06/06/18 06:50 RBC 4.57 10^6/uL (4.18-5.33) 06/06/18 06:50 Hgb 14.4 g/dL (12.6-16.3) 06/06/18 06:50 Hct 40.9 % (38.0-47.0) 06/06/18 06:50 MCV 89.5 fL (81.5-99.8) 06/06/18 06:50 MCH 31.5 pg (27.9-34.1) 06/06/18 06:50 MCHC 35.2 g/dL (32.4-36.7) 06/06/18 06:50 RDW 12.3 % (11.5-15.2) 06/06/18 06:50 Plt Count 214 10^3/uL (150-400) 06/06/18 06:50 Assessment & Plan Assessment: 33 yo F with hx chronic left hip pain 2/2 left hip acetabular dysplasia now s/p MARSHA # left hip pain: 2/2 acetabular dysplasia and now post op from left kassandra acetabular osteotomy. Patient is doing well in the post operative period, she is not having any pain or nausea currently. She will work with PT in the am. PRN opiate medications available for pain should it recur # dysmenorrhea: patient notes a hx of severe menstrual pain and states that she is due for her period shortly, reviewed with her that the pain medications available to treat her post op pain can also be used to treat her menstrual pain # hypotension: patient mildly hypotensive in the post operative period but asymptomatic, suspect this is related to anesthesia effect, will continue to monitor # RAD: without e/o acute exacerbation, continue prn levalbuterol # Patient new to my care. Old records reviewed and summarized as above. Care plan reviewed with deondre KIRBY. Thank you for this consultation. Medicine will continue to follow while in house.
[2018-06-06] MEDS: SENNOSIDES/DOCUSATE SODIUM TAB PO SCH (22:54)
[2018-06-07] MEDS: NS 1,000 ML IV SCH (01:07)
[2018-06-07] MEDS: RN MESSAGE:DATE/TIME OF ADMIN MISC SCH ×2 (03:47→13:04)
--- NOTE | 2018-06-07 07:54 | PDPAINCON ---
Pain Management Consultation Patient referred by : Angel - Subjective Pain at rest (/10): 0 Pain is: no pain at all - Objective Technique: spinal opioid Vital signs: stable - Assessment/Plan Additional comments: Pain well Controlled, but is just starting to notice some discomfort. medical staff assistant is getting the FOOD AND BEVERAGE CONTROLLER set-up. Ortho will oversee pain management going forward.
[2018-06-07] MEDS: NAPROXEN SODIUM 220 MG TAB PO SCH ×3 (08:02→20:45)
[2018-06-07] MEDS: oxyCODONE IR 5 MG TAB PO PRN ×6 (08:03→22:48)
[2018-06-07] MEDS: ACETAMINOPHEN 325 MG TAB PO PRN ×3 (08:04→16:46)
[2018-06-07] MEDS: SENNOSIDES/DOCUSATE SODIUM TAB PO SCH ×2 (08:05→19:51)
[2018-06-07] MEDS: PANTOPRAZOLE SODIUM 40 MG TAB PO SCH (08:05)
[2018-06-07] MEDS: DIAZEPAM 2 MG TAB PO PRN ×4 (08:07→20:45)
[2018-06-07] MEDS: POLYETHYLENE GLYCOL 3350 17 GM PKT PO PRN (08:07)
--- NOTE | 2018-06-07 10:11 | ASMTCMCOM ---
CM Note CM Note Notes: Patient is POD #1 MARSHA for hip dysplasia. She is doing well post-operatively. Patient lives with her , and her mother is coming to stay with her upon discharge. PT has evaluated and cleared her for home. If any discharge needs arise, CM is available. Otherwise, anticipate an independent discharge. Date Signed: 06/07/2018 10:10 AM Electronically Signed By:Maureen Agosto RN
--- NOTE | 2018-06-07 12:50 | HOSPPROG ---
Hospitalist Progress Note Assessment/Plan: 33 yo F with hx chronic left hip pain 2/2 left hip acetabular dysplasia now s/p MARSHA. Today is my first encounter w the patient, chart reviewed. *left hip pain due to acetabular dysplasia -s/p MARSHA -prn pain medications -pain is very well managed *anemia -will follow *hypotension -asymptomatic *RAD -no s/sx *Plan: continued monitoring of labs, cadet removal when ok w surgical team. Subjective: Tati is feeling well today, eating and drinking, not having significant pain. Objective: Vital Signs Temp Pulse Resp BP Pulse Ox 36.3 C 70 14 88/59 L 93 06/07/18 12:00 06/07/18 12:00 06/07/18 12:00 06/07/18 12:00 06/07/18 12:00 Laboratory Results 06/07/18 04:30 06/07/18 04:30 06/06/18 06/07/18 06/08/18 05:59 05:59 05:59 Intake Total 4700 500 Output Total 3200 1040 Balance 1500 -540 - Physical Exam Constitutional: no apparent distress, appears nourished, not in pain Eyes: PERRL Ears, Nose, Mouth, Throat: hearing normal Cardiovascular: regular rate and rhythym Respiratory: no respiratory distress Skin: warm, other (swelling at hip site, left) Neurologic: AAOx3 Psychiatric: interacting appropriately ICD10 Worksheet Patient Problems: Problems Problem Status Onset Hip dysplasia Acute - ICD10 Problem Qualifiers (1) Hip dysplasia
--- NOTE | 2018-06-07 22:48 | SOAPPROG ---
SOAP Progress Note Assessment/Plan: Assessment: 1 day post op Left Periacetabular Osteotomy Plan: Oral analgesia up with PT/OT pelvis x-ray POD#3 06/07/18 22:44 Subjective: Tati was seen at 1800, at that time she was walking the halls and doing very well. She has been very well pain managed with oral analgesia. She denies any cp, sob or nausea. Objective: Vital Signs Temp Pulse Resp BP Pulse Ox 36.5 C 77 16 89/59 L 99 06/07/18 19:44 06/07/18 19:44 06/07/18 19:44 06/07/18 19:44 06/07/18 19:44 Laboratory Results 06/07/18 04:30 06/07/18 04:30 06/06/18 06/07/18 06/08/18 05:59 05:59 05:59 Intake Total 4700 850 Output Total 3200 3040 Balance 1500 -2190 Well appearing in NAD Left hip: dressings clean dry inact scattered ecchymosis and edema no thigh numbness NVI distally full ROM of foot and ankle ICD10 Worksheet Patient Problems: Problems Problem Status Onset Hip dysplasia Acute
[2018-06-08] MEDS: DIAZEPAM 2 MG TAB PO PRN ×3 (02:09→14:13)
[2018-06-08] MEDS: oxyCODONE IR 5 MG TAB PO PRN ×5 (02:09→19:30)
[2018-06-08] MEDS: ACETAMINOPHEN 325 MG TAB PO PRN ×3 (06:25→19:31)
[2018-06-08] MEDS: PANTOPRAZOLE SODIUM 40 MG TAB PO SCH (08:49)
[2018-06-08] MEDS: NAPROXEN SODIUM 220 MG TAB PO SCH ×3 (08:49→21:26)
[2018-06-08] MEDS: SENNOSIDES/DOCUSATE SODIUM TAB PO SCH ×2 (08:51→19:30)
[2018-06-08] MEDS: POLYETHYLENE GLYCOL 3350 17 GM PKT PO PRN (08:51)
--- NOTE | 2018-06-08 11:54 | HOSPPROG ---
Hospitalist Progress Note Assessment/Plan: 33 yo F with hx chronic left hip pain 2/2 left hip acetabular dysplasia now s/p MARSHA. *left hip pain due to acetabular dysplasia -s/p MARSHA -doing well *anemia -will follow *hypotension -asymptomatic *RAD -no s/sx *Plan: continued care, she is doing well today. Hopefully, home soon per surgical team. Subjective: Tati has no complaints. Objective: Vital Signs Temp Pulse Resp BP Pulse Ox 36.7 C 79 15 94/59 L 98 06/08/18 11:15 06/08/18 11:15 06/08/18 11:15 06/08/18 11:15 06/08/18 11:15 Laboratory Results 06/08/18 04:21 06/07/18 04:30 06/07/18 06/08/18 06/09/18 05:59 05:59 05:59 Intake Total 4700 1850 Output Total 3200 3040 1000 Balance 1500 -1190 -1000 - Physical Exam Constitutional: no apparent distress, appears nourished, not in pain Eyes: PERRL Ears, Nose, Mouth, Throat: hearing normal Cardiovascular: regular rate and rhythym Respiratory: no respiratory distress Gastrointestinal: normoactive bowel sounds Skin: warm, other (left hip w swelling) Neurologic: AAOx3 Psychiatric: interacting appropriately ICD10 Worksheet Patient Problems: Problems Problem Status Onset Hip dysplasia Acute - ICD10 Problem Qualifiers (1) Hip dysplasia
[2018-06-08] MEDS: ASPIRIN EC 81 MG TAB PO SCH (14:17)
--- NOTE | 2018-06-08 18:35 | SOAPPROG ---
SOAP Progress Note Assessment/Plan: Assessment: 33 yo F POD #2 s/p L MARSHA, doing well post-operatively. Plan: XR AP pelvis tonight or early tomorrow -- needs to be cleared by Dr. Jeffers prior to d/c Continue pain control PT/OT -- needs to do stairs prior to d/c as has 15 steps into home Plan for possible d/c tomorrow after stairs with PT, XR cleared 06/08/18 18:32 Subjective: Patient reports pain is well controlled, no complaints or issues. Voiding since cadet out. Has been up with PT and mobilizing well. Objective: Vital Signs Temp Pulse Resp BP Pulse Ox 36.8 C 81 11 L 85/47 L 94 06/08/18 15:20 06/08/18 15:20 06/08/18 15:20 06/08/18 15:20 06/08/18 15:20 Laboratory Results 06/08/18 04:21 06/07/18 04:30 06/07/18 06/08/18 06/09/18 05:59 05:59 05:59 Intake Total 4700 1850 Output Total 3200 3040 1000 Balance 1500 -1190 -1000 PE: R hip dressings c/d/i, mild post-op edema/ecchymosis No numbness lateral thigh or foot 5/5 TA, GSC, EHL Palpable DP pulse, BCR <2 sec ICD10 Worksheet Patient Problems: Problems Problem Status Onset Hip dysplasia Acute
[2018-06-08] MEDS ORDERED: IMIQUIMOD TP SCH (21:00)
[2018-06-09] MEDS: oxyCODONE IR 5 MG TAB PO PRN ×2 (03:03→15:36)
[2018-06-09] MEDS: DIAZEPAM 2 MG TAB PO PRN ×2 (03:03→12:19)
[2018-06-09 08:21] VITALS: BP 106/68
[2018-06-09] MEDS: PANTOPRAZOLE SODIUM 40 MG TAB PO SCH (08:25)
[2018-06-09] MEDS: ASPIRIN EC 81 MG TAB PO SCH (08:25)
[2018-06-09] MEDS: NAPROXEN SODIUM 220 MG TAB PO SCH ×2 (08:25→15:36)
[2018-06-09] MEDS: SENNOSIDES/DOCUSATE SODIUM TAB PO SCH (08:26)
--- NOTE | 2018-06-09 09:24 | HOSPPROG ---
Hospitalist Progress Note Assessment/Plan: 33 yo F with hx chronic left hip pain 2/2 left hip acetabular dysplasia now s/p MARSHA. *left hip pain due to acetabular dysplasia -s/p MARSHA -doing well *anemia -stable *hypotension -asymptomatic *RAD -no s/sx *Plan: Tati is feeling well, dc per orthopedics team. Subjective: Tati is up in the chair, has no complaints. Objective: Vital Signs Temp Pulse Resp BP Pulse Ox 36.7 C 82 16 106/68 94 06/09/18 08:00 06/09/18 08:00 06/09/18 08:00 06/09/18 08:00 06/09/18 08:00 Laboratory Results 06/09/18 04:43 06/07/18 04:30 06/08/18 06/09/18 06/10/18 05:59 05:59 05:59 Intake Total 1850 1000 200 Output Total 3040 1000 Balance -1190 0 200 - Physical Exam Constitutional: no apparent distress, appears nourished, not in pain Eyes: PERRL Ears, Nose, Mouth, Throat: hearing normal Respiratory: no respiratory distress Skin: warm Musculoskeletal: generalized weakness Neurologic: AAOx3 Psychiatric: interacting appropriately ICD10 Worksheet Patient Problems: Problems Problem Status Onset Hip dysplasia Acute - ICD10 Problem Qualifiers (1) Hip dysplasia
--- NOTE | 2018-06-09 13:35 | ASDISCHSUM ---
Discharge Information Plan Status: Medically Cleared to Leave: Discharge Date: CM D/C Disposition: ADT D/C Disposition: Projected Discharge Date: Transportation at D/C: Discharge Delay Reason: Follow-Up Date: Discharge Slot: Final Diagnosis: Placement Information Patient Contact Information Contact Name:SKIP Relationship:Mother Address:[facility] [address] City:[facility] Phone: State/Zip Code:[place] [address] Email: Financial Information Financial Class:Medicaid Primary Plan Desc:[employer] [place] Primary Plan Number:[id number] Secondary Plan Desc: Secondary Plan Number: Assessment Information BC CM Progress Note CM Note CM Note Notes: Patient is POD #1 MARSHA for hip dysplasia. She is doing well post-operatively. Patient lives with her , and her mother is coming to stay with her upon discharge. PT has evaluated and cleared her for home. If any discharge needs arise, CM is available. Otherwise, anticipate an independent discharge. Date Signed: 06/07/2018 10:10 AM Electronically Signed By:Maureen Agosto RN Intervention Information
--- NOTE | 2018-06-09 13:36 | ASMTLACE ---
LACE Length of stay for Answers: 4-6 days current admission Acuity / Level of Answers: Yes Care: Did the patient have an inpatient admission? Comorbidities - select Answers: Opioid dependence all that apply / Chronic pain Other Notes: Hx of UTI # of Emergency department Answers: 1-2 visits in the last 6 months Score: 13 Date Signed: 06/09/2018 01:35 PM Electronically Signed By:MICHAELA Moss
== END 2018-06-09 17:10 | disposition home or self-care (01) | DRG 850 ==
LOC: F3N 05:08
PROVIDERS: ADMIT Orthopaedic Surgery Sports Medicine; ATTEND Orthopaedic Surgery Sports Medicine
PROC: 0QS504Z Reposition Left Acetabulum with Internal Fixation Device, Open Approach (ICD-10-PCS; principal; 2018-06-06 07:15)
DX: G89.18 Other acute postprocedural pain (principal); Q65.89 Other specified congenital deformities of hip; D64.9 Anemia, unspecified; I95.9 Hypotension, unspecified; M25.851 Other specified joint disorders, right hip; M25.852 Other specified joint disorders, left hip; J45.909 Unspecified asthma, uncomplicated
CPT/HCPCS: 97116-GP; 97161-GP; 97165-GO; 97530-GP; 97535-GO; C1713; J1100; J2250; J2274; J2370; J2405; J2704; J2780; J3010

== ENCOUNTER 2018-10-31 05:14 | Day surgery (SDC) | payer MEDICAID ==
--- NOTE | 2018-10-30 21:17 | PDGENHP ---
History and Physical - Chief Complaint LEFT HIP PAIN - History of Present Illness 1. Right Femoroacetabular impingement (CAROL) Cam type 2. Right Hip Dyplasia 3. RIght femoral/tibial malrotation 4. History of LEFT HIP SCOPE/LEFT MARSHA HISTORY OF PRESENT ILLNESS: Raúlis a 33 y.o.~~~active female~who I have had the pleasure to consult on today.~I have enjoyed meeting her. She~lives in [place], [place]. 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 ~She~is ; she~has no children. ~Raúlenjoys unicycling, juggling, hiking, rock climbing. Wiliams ~hip pain started several years ago, with some~recalled trauma or injury, and with some~previous complaints.~Back in 2009- doing some hard stretching and felt a sensation of it slipping out of place - but this was nonpainful. Then 2 years ago started having lower back pain followed by hip pain in the past 6 months. Hips started bothering her when she began PT for her lower back. Raúldoes not have~a known history of hip dysplasia (h/o dysplasia in sister and father). Presentation today is of~anterior~hip pain . ~The hip does~wake her~at night and does~click and catch on her. Sitting can be a real struggle for her. Liane Salazardoes~report suffering from lower back pain episodes. Raúlhas not~participated in physical therapy (for the hip specifically) and has not~tried other conservative measures. Raúlhas not~utilized medication for pain management. Raúlunderstands that she~has a hip and pelvis problem which should be researched and wishes to get a better understanding of her~hip status, followed by an establishment of a treatment strategy, hoping she~would be able to get back to her~well being active life. History: Past medical history: ~ Patient ~has a past medical history of Asthma. Relevant familial history: hip dysplasia sister and father Past surgical history: Left Hip Scope Left MARSHA Raúlhas never received general anesthesia. I have reviewed, verified and agree with the past medical, surgical, family and social history. Current Medications:~has a current medication list which includes the following prescription(s): ibuprofen. ALLERGIES:~is allergic to penicillins. Objective: Physical Examination: Raúlis 5 feet 9~inches tall and weighs~140~Lbs. Raúlis AAO x3; she~is well-nourished, in NAD. Skin is warm and dry. ~Breathing is non-labored. ~CV with RRR by pulse. Abdomen is soft, NTND. Currently, she~walks with a normal~gait. Trendelenburg sign is positive and proprioception~is reduced, both~sides. She~presents~with no~signs of joint laxity.~Beightons Score: 0 She~is fit looking. ~~ Lower spine examination is negative~for sciatic or femoral nerve irritation with negative~SLR &~femoral stretch tests. Range of motion of the spine is normal~for flexion, extension, and rotations, with no~associated pain. Strength, Sensation and pulses are normal - bilaterally Ankles and knees exams are normal~and no~mal-alignment is evident. She~has~right~0.5 cm short leg length discrepancy. Thigh circumference is symmetric with no evidence for muscle atrophy on both~ sides. Hip ROM (degrees): FL ER At 90~hip FL IR At 90~hip FL AB AD EX IR Neutral hip ER Neutral hip R 110 55 20 35 10 5 45 40 L 120 50 35 35 10 5 45 40 Specific hip and pelvis tests: Impingement Test [place] Roll Add. Longus R Negative +++ Negative Negative L +++ +++ Negative + Glut. Med ITB Posterior Imp R Negative 5/5 strength Negative 5/5 strength Negative L Negative 5/5 strength Negative 5/5 strength Negative Squeeze test measured normal Bony Symphysis pubis is painful to touch while concentric activity of the rectus abdominis, does not~produce pain at its insertion. Ilio Psos specific tests are negative for pain during cycling for both hips~and remarkable for non painful snap~~On eleft HF has no pain both hips. lateral capsule tenderness on the left Greater trochanteric burse is painful on the left hip. Piriformis tests: FAIR is negative, with no local signs of neuritis related to sciatic nerve. SIJs examination is painful bilaterally with normal~[place] in relation and local tenderness. Hamstrings tests are negative both hips. Tibial torsion - 55 bilaterally ER On a daily basis, the following percentages reflect Liane's overall total pain : Deep anterior hip: 50% SI joint: 50% Imaging: Radiology studies which I~have personally reviewed, analyzed and measured are below: XR: AP of the hip and pelvis: Performed in a suboptimal~technique Coccyx to pubic symphysis distance 2.2 cm. 0 degrees caudal [place]~Lines are preserved. Marked Pathological signs are seen in the Symphysis Pubis. No Pathological signs are seen at the Ischial~tuberosity. ~ Specific measurements show: NSA~ LCE Sourcil~Angle Sharp's angle Lat. Cam Lat. Pincer C.Over~sign Head~Coverage % ATDmm R 128 16 9 41 N N N 65 + L 125 19 11 40 N N N 73 + Pos. wall sign ISS NAD ~~Dysplasia Comments R + Negative 18.6 mm +++ L + Negative 14.4 mm ++ Sclerosis Sup. Lat. OA Cysts Joint Space-WBZ Joint Space-Medial R Negative Negative Negative 4.6 mm 4.5 mm L Negative Negative Negative 4.5 mm 5.1 mm X Table lateral: Anterior cam lesion is seen~on both hips. Alpha Angle: ~ Right 74 dergrees Left 76 degrees Impression and plan:~ Raúlis a 33 y.o.~active female~suffering from symptomatic Left hip pain due to Left Hip Retained hardware, Left Femoroacetabular impingement (CAROL) Cam type , and Left (clinical) femoral and tibial malrotation causing significant disability to her~and altering~her~sport and life activities. Physical examination, imaging, and her~story correspond with the diagnosis mentioned above. I explained that hip dysplasia is a condition wherein the hip joint has excessive play~and instability due to a variety of factors, including the depth and adequacy of the socket, the orientation of the femur bone, and ligament laxity around the hip joint. Dysplasia ranges in severity from borderline to yeni, with treatment options being specific to the specific nature of the problem. Left untreated, the instability in the hip joint can cause progressive tearing of the labrum and deterioration of the surface cartilage, ultimately resulting in progressive osteoarthritis of the hip. I explained that femoroacetabular impingement (CAROL - Cam type) arises due to a bony or soft tissue conflict between the femur (ball) and acetabulum (socket) caused by an abnormality in the shape of the femoral head and neck. Over time, repetitive impingement can result in damage to the labrum and adjacent surface cartilage within the socket, ultimately giving rise to progressive osteoarthritis of the hip. I explained that although a labral tear can be a source of pain, it is rarely the root of the problem and typically occurs secondary to an underlying abnormality in the shape and mechanics of the hip joint. I reviewed conservative treatment options for Dysplasia and CAROL including activity modification to avoid positions of impingement or instability, physical therapy, non-steroidal anti-inflammatory medications, and various injections (corticosteroid and PRP) aimed at reducing inflammation in the hip joint or/and preventing dynamic instability and impingement. PRP injections may promote healing and reduce symptoms in certain cases but it will not repair chronically damaged tissue. Although these measures may help to buy time~and reduce current level of symptoms, they are not a definitive solution to the problem given the underlying abnormality in the shape of the hip joint. Patients who have failed conservative management and continue to experience symptoms are candidates for definitive surgical treatment, which may consist of hip arthroscopy alone or in combination with more invasive bony realignment procedures of the hip socket and/or femur called periacetabular osteotomy (MARSHA) or derotational femoral osteotomy (DFO). Hip arthroscopy typically includes treating the labrum with either repair or reconstruction of the torn labrum; as well as addressing the underlying abnormalities by restoring the normal shape to the hip joint. If the cartilage is damaged a Microfracture surgical procedure may also be necessary to help stimulate the growth of fibrocartilage. If a patient requires a labral reconstruction or a Microfracture, the initial rehabilitation from the surgery may take longer, but the custodial results are typically favorable. Raúlwill review the info presented. In order to obtain more detailed information regarding the alignment, orientation, and shape of the bony hip and pelvis I will order a CT scan to be performed. The results of the CT scan, including femoral torsion and acetabular version measured values and 3D images, will aid me in deciding on the best treatment strategy and surgical pre-planning. (Given clinical signs of excessive external tibial torsion will get CT that includes proximal and distal tibia). Liane is going to think about her options and get back to us. Raúlis happy with this plan. I have also supplied her~with handouts, outlining the expected surgical treatment and rehab involved. I wish~Liane~all the best, ~~ Sherie Guthrie MD History Information - Allergies/Home Medication List Allergies/Adverse Reactions: Penicillins Allergy (Verified 05/02/18 11:41) RASH,HIVES HANDS & ARMS Home Medications: Imiquimod 1 each TP MOWEFR@21 05/06/18 [Last Taken Unknown] Levalbuterol Inhaler [Xopenex Hfa Inhaler (*)] 2 puffs IH DAILY PRN 05/06/18 [ Last Taken Unknown] I have personally reviewed and updated: medical history - Past Medical History Additional medical history: dysmenorrhea. 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
[2018-10-31] MEDS ORDERED: LR 1,000 ML IV ONE (05:40)
[2018-10-31] MEDS ORDERED: ACETAMINOPHEN 500 MG TAB PO ONE (06:34)
[2018-10-31] MEDS ORDERED: PREGABALIN 150 MG CAP PO ONE (06:34)
[2018-10-31] MEDS ORDERED: CLINDAMYCIN 900 MG/DEXTROSE 50 ML IV ONE (06:36)
[2018-10-31] MEDS ORDERED: LIDOCAINE 1% 300 MG/30 ML SDV ONE (06:56)
[2018-10-31] MEDS ORDERED: ceFAZolin 2 GM/DEXTROSE 100 ML IV ONE (07:00)
--- NOTE | 2018-10-31 07:02 | PDANEPAE ---
ANE Past Medical History - Cardiovascular History Hx Hypertension: No Hx Arrhythmias: No Hx Chest Pain: No Hx Coronary Artery / Peripheral Vascular Disease: No Hx CHF / Valvular Disease: No Hx Palpitations: No Cardiovascular History Comment: POSS SL MURMUR TEEN - Pulmonary History Hx COPD: No Hx Asthma/Reactive Airway Disease: No Hx Recent Upper Respiratory Infection: No Hx Oxygen in Use at Home: No Hx Sleep Apnea: No Sleep Apnea Screening Result - Last Documented: Negative Pulmonary History Comment: VOCAL CORD DISORDER,SOMETIMES AFTER BIG MEAL. 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 INFREQUENT USE OF INHALER - Neurologic History Hx Cerebrovascular Accident: No Hx Seizures: No Hx Dementia: No - Endocrine History Hx Diabetes: No - Renal History Hx Renal Disorders: Yes Renal History Comment: HX OF UTI'S - Liver History Hx Hepatic Disorders: No - Neurological & Psychiatric Hx Hx Neurological and Psychiatric Disorders: No - Cancer History Hx Cancer: No - Congenital Disorder History Hx Congenital Disorders: Yes Congenital History Comment: CLAY HIPS - GI History Hx Gastrointestinal Disorders: Yes Gastrointestinal History Comment: PRONE TO NAUSEA AT THE SLIGHTEST PROVACATION CAN HAPPEN DURING MENSES - Other Health History Other Health History: INTERMITTENT RASH - Chronic Pain History Chronic Pain: Yes (MILD L HIP) - Surgical History Prior Surgeries: MARSHA. LT HIP SCOPE FEMOROPLASTY 05/30/18 ANE Review of Systems Review of Systems: - Exercise capacity METS (RN): 5 METS ANE Patient History - Allergies Allergies/Adverse Reactions: Penicillins Allergy (Verified 05/02/18 11:41) RASH,HIVES HANDS & ARMS - Home Medications Home Medications: Imiquimod 1 each TP MOWEFR@21 05/06/18 [Last Taken Unknown] Levalbuterol Inhaler [Xopenex Hfa Inhaler (*)] 2 puffs IH DAILY PRN 05/06/18 [ Last Taken Unknown] - NPO status NPO Since - Liquids (Date): 10/31/18 NPO Since - Liquids (Time): 04:25 NPO Since - Solids (Date): 10/30/18 NPO Since - Solids (Time): 18:00 - Smoking Hx Smoking Status: Never smoked - Family Anes Hx Family Hx Anesthesia Complications: NEG ANE Labs/Vital Signs - Vital Signs Blood Pressure: 104/67 Heart Rate: 75 Respiratory Rate: 16 O2 Sat (%): 95 Height: 177.8 cm Weight: 63.503 kg ANE Physical Exam - Airway Mallampati Score: Class 1 - ASA Status ASA Status: II ANE Anesthesia Plan Anesthesia Plan: GA w LMA
[2018-10-31] MEDS ORDERED: MIDAZOLAM 2 MG/2 ML VIAL ONE (07:06)
[2018-10-31] MEDS ORDERED: PROPOFOL 200 MG/20 ML VIAL ONE (07:06)
[2018-10-31] MEDS ORDERED: fentaNYL 100 MCG/2 ML INJ ONE (07:06)
[2018-10-31] MEDS ORDERED: ONDANSETRON 4 MG/2 ML VIAL ONE (07:07)
[2018-10-31] MEDS ORDERED: LIDOCAINE 2% JELLY 6 ML TOPICAL SYR ONE (07:07)
[2018-10-31] MEDS ORDERED: DEXAMETHASONE 4 MG/ML VIAL ONE (07:07)
[2018-10-31] MEDS ORDERED: METOCLOPRAMIDE 10 MG/2 ML VIAL ONE (07:07)
[2018-10-31] MEDS ORDERED: fentaNYL 100 MCG/2 ML INJ IVP PRN (08:09)
[2018-10-31] MEDS ORDERED: PROMETHAZINE HCL 25 MG/ML INJ IVP PRN (08:09)
[2018-10-31] MEDS ORDERED: NALOXONE HCL 0.4 MG/ML INJ IVP PRN (08:09)
[2018-10-31] MEDS ORDERED: LR 500 ML IV PRN (08:09)
--- NOTE | 2018-10-31 08:10 | POSTANESTH ---
Post Anesthetic Evaluation Cardiovascular Status: Normal, Stable Respiratory Status: Normal, Stable Level of Consciousness/Mental Status: Can Participate in Eval Pain Control: Adequate, Prn Tx Ordered Nausea/Vomiting Control: Adequate, Prn Tx Ordered Complications Possibly Related to Anesthesia: None Noted
[2018-10-31 09:34] VITALS: BP 95/66
== END 2018-10-31 10:10 | disposition home or self-care (01) ==
LOC: FSGY 05:14
PROVIDERS: ATTEND Orthopaedic Surgery Sports Medicine
PROC: 0QP304Z Removal of Internal Fixation Device from Left Pelvic Bone, Open Approach (ICD-10-PCS; principal; 2018-10-31 07:15)
DX: T84.84XA Pain due to internal orthopedic prosthetic devices, implants and grafts, initial encounter (principal); J45.909 Unspecified asthma, uncomplicated; Z87.39 Personal history of other diseases of the musculoskeletal system and connective tissue
CPT/HCPCS: J0690; J1100; J2250; J2405; J2704; J2765; J3010